=== PATIENT | female | born 1975 | race Caucasian/White ===

== ENCOUNTER 2017-01-20 12:27 | Emergency (ER) | payer OTHER ==
[~2017-01-20] VITALS: Ht 167.6 cm; Wt 122.5 kg
--- NOTE | 2017-01-20 13:02 | RAD ---
Three-view right shoulder radiographs 01/20/2017 Clinical history: Right shoulder pain post injury. AP internal and external rotation and transscapular digital radiographs of the right shoulder were obtained. No fracture or dislocation of the right shoulder is seen. Mild degenerative changes are seen involving the right AC joint. Impression: No fracture or dislocation of the right shoulder is seen.
[2017-01-20 13:45] VITALS: BP 162/103
[2017-01-20] MEDS ORDERED: KETOROLAC 60 MG/2 ML INJ. IM ONE (14:45)
[2017-01-20] MEDS ORDERED: DICL50TA4 PO (14:55)
--- NOTE | 2017-01-20 14:55 | PHYS DOC ---
Past Medical History Past Medical History: Depression, Hypertension Past Surgical History: Cholecystectomy, Tubal ligation Additional Past Surgical Histo: D&C; Hernia Alcohol Use: Rarely Drug Use: None Adult General Chief Complaint Chief Complaint: SHOULDER INJURY HPI HPI Patient is a 41 year old female with history of hypertension and depression who presents today with moderate sharp right shoulder pain that began a couple minutes prior to coming to the ED. 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 Patient states the pain is worse on range of motion. Review of Systems Review of Systems Constitutional: Denies fever or chills [] Musculoskeletal: Right shoulder pain Integument: Denies rash or skin lesions [] Neurologic: Denies headache, focal weakness or sensory changes [] Current Medications Current Medications Current Medications Medications (Trade) Dose Ordered Sig/S[place] Start Time Stop Time Status Last Admin Dose Admin Ketorolac Tromethamine (Toradol Im) 60 mg 1X ONCE 01/20/17 14:45 01/20/17 14:46 DC 01/20/17 14:47 60 MG Allergies Allergies Allergies Coded Allergies Type Severity Reaction Last Updated Verified Penicillins Allergy Intermediate 01/20/17 Yes latex Allergy Intermediate 01/20/17 Yes lisinopril Allergy Intermediate 01/20/17 Yes morphine Allergy Intermediate 01/20/17 Yes Physical Exam Physical Exam Constitutional: Well developed, well nourished, no acute distress, non-toxic appearance. [] Skin: Warm, dry, no erythema, no rash. [] Back: No tenderness, no CVA tenderness. [] Extremities: Right shoulder with no obvious deformity. Tenderness on palpation of posterior right shoulder joint. Full active and passive range of motion to the right shoulder including abduction and adduction. Adequate plantar flexion and this flexion of the right forearm. +2 right radial pulse. Adequate radial medial and ulnar sensation to the right upper extremity. Cap refill less than 2 seconds the right fingers. Neurologic: Alert and oriented X 3, normal motor function, normal sensory function, no focal deficits noted. [] Psychologic: Affect normal, judgement normal, mood normal. [] Current Patient Data Vital Signs Vital Signs Date Time Temp Pulse Resp B/P (MAP) Pulse Ox O2 Delivery O2 Flow Rate FiO2 01/20/17 13:45 98.5 77 16 94 Room Air 98.5 EKG EKG [] Radiology/Procedures Radiology/Procedures []PROCEDURE: SHOULDER 2+V RIGHT Three-view right shoulder radiographs 01/20/2017 Clinical history: Right shoulder pain post injury. AP internal and external rotation and transscapular digital radiographs of the right shoulder were obtained. No fracture or dislocation of the right shoulder is seen. Mild degenerative changes are seen involving the right AC joint. Impression: No fracture or dislocation of the right shoulder is seen. DICTATED and SIGNED BY: MANUEL BRODERICK MD DATE: 01/20/17 [id number] CC: ELIZABETH FERNANDES APRN ~ Course & Med Decision Making Course & Med Decision Making Pertinent Labs and Imaging studies reviewed. (See chart for details) Patient is in the ED with right shoulder pain after sliding a 500 pound patient up in bed on the fifth floor. Right shoulder x-rays interpreted by radiologist are negative for any acute findings. Patient likely has right shoulder strain. Ice elevation encouraged. Provided a sling in the ED by the ED RN, neurovascular exam is intact. Follow-up with orthopedic doctor provided in the next 7 days if pain continues. Discharged with diclofenac for pain. Her blood pressure was elevated in the emergency room. She has history of hypertension. Recommended following up with her PCP. She has no cardiac or neurological complaints. Dragon Disclaimer Dragon Disclaimer This electronic medical record was generated, in whole or in part, using a voice recognition dictation system. Departure Departure Impression: Primary Impression: Right shoulder strain Additional Impression: Hypertension Disposition: 01 HOME, SELF-CARE Condition: STABLE Referrals: HÉCTOR ROLON MD follow up in one week Patient Instructions: Shoulder Exercises, Generic, SportsMed, Shoulder Sprain Additional Instructions: You were seen with the right shoulder strain. Ice and elevate the extremity. Wear the sling provided but ensure you remove the right upper extremity from the sling every hour and take it through full range of motion as well as dangle it down to prevent frozen shoulder. Follow up with the orthopedic doctor provided in the next 7 days if pain continues. Take the prescribed pain medicine as needed. Your blood pressure was elevated in the emergency room. Follow-up with the primary care doctor for BP monitoring as well. Scripts Diclofenac Sodium (DICLOFENAC SODIUM) 50 Mg Tablet.dr 1 TAB PO BID, #30 TAB 0 Refills Prov: ELIZABETH FERNANDES APRN 01/20/17 Problem Qualifiers Primary Impression: Right shoulder strain Encounter type: initial encounter Qualified Codes: S46.911A - Strain of unspecified muscle, fascia and tendon at shoulder and upper arm level, right arm , initial encounter Additional Impression: Hypertension Hypertension type: unspecified Qualified Codes: I10 - Essential (primary) hypertension ELIZABETH FERNANDES APRN Jan 20, 2017 14:55
== END 2017-01-20 15:10 | disposition home or self-care (01) ==
LOC: ER 12:27
DX: S46.911A Strain of unspecified muscle, fascia and tendon at shoulder and upper arm level, right arm, initial encounter (principal); I10 Essential (primary) hypertension; F32.9 Major depressive disorder, single episode, unspecified; Z88.0 Allergy status to penicillin; Z91.040 Latex allergy status; Z88.5 Allergy status to narcotic agent; Z88.8 Allergy status to other drugs, medicaments and biological substances; Z90.49 Acquired absence of other specified parts of digestive tract; X58.XXXA Exposure to other specified factors, initial encounter; Y93.89 Activity, other specified; Y92.89 Other specified places as the place of occurrence of the external cause; Y99.8 Other external cause status
CPT/HCPCS: 29240; 73030; 96372; 99284; J1885

== ENCOUNTER 2020-04-29 18:51 | Emergency (ER) | payer OTHER ==
[~2020-04-29] VITALS: Ht 167.6 cm; Wt 113.6 kg
[~2020-04-29 18:51] MED LIST: DICL50TA4 PO
[2020-04-29 19:15] VITALS: BP 157/101
--- NOTE | 2020-04-29 21:42 | RAD ---
Exam: Left ankle 3 views INDICATION: Fall TECHNIQUE: Frontal, lateral and oblique views of the right ankle Comparisons: None FINDINGS: Mild soft tissue swelling surrounding the left ankle. Bone mineralization is normal. No acute or heal ed fractures. Joint spaces are well-maintained. IMPRESSION: No acute osseous abnormality. Electronically signed by: Mandeep Lazar MD (04/29/2020 9:40 PM) LEANNA
--- NOTE | 2020-04-29 21:43 | RAD ---
Exam: Right elbow 3 views INDICATION: Fall, TECHNIQUE: Frontal, lateral and oblique views of the right elbow Comparisons: None FINDINGS: Bone mineralization is normal. No acute or healed fractures. Soft tissues are unremarkable. Joint spa jake are well-maintained. IMPRESSION: No acute osseous abnormality. Electronically signed by: Mandeep Lazar MD (04/29/2020 9:41 PM) LEANNA
--- NOTE | 2020-04-29 21:43 | RAD ---
EXAM: AP pelvis, AP and lateral views right hip DATE: 04/29/2020 8:51 PM INDICATION: Reason: Fall - pt in waiting room, please continue with x-ray / Spl. Instructions: / His tory: COMPARISON: No Prior FINDINGS: Scattered pelvic phleboliths are seen. No evidence of acute fracture or dislocation. Joint spaces are preserved without significant degenerative/proliferative change. Degenerative changes of spine are s een. IMPRESSION: No evidence of acute fracture or dislocation. Electronically signed by: Donovan Su MD (04/29/2020 9:40 PM) TEO
--- NOTE | 2020-04-29 21:46 | RAD ---
EXAM: 3 views of the left wrist DATE: 04/29/2020 8:51 PM INDICATION: Reason: Fall - pt in waiting room, please continue with x-ray / Spl. Instructions: / His tory: COMPARISON: No Prior FINDINGS: No acute fracture or dislocation. Mild thumb CMC DJD. No significant soft tissue swelling. IMPRESSION: 1. No evidence of acute fracture or dislocation. 2. Mild thumb CMC DJD Electronically signed by: Donovan Su MD (04/29/2020 9:44 PM) TEO
[2020-04-29] MEDS ORDERED: IBUP-1007 PO (22:46)
[2020-04-29] MEDS ORDERED: ORPH100T PO (22:46)
--- NOTE | 2020-04-29 22:47 | PHYS DOC ---
Past Medical History Past Medical History: Bipolar, Depression, Hypertension, Other Additional Past Medical Histor: ROSAS (DARRIAN MAZARIEGOS ANALYTICAL ENGINEER) Past Surgical History: Cholecystectomy, Tubal ligation Additional Past Surgical Histo: D&C; Hernia (DARRIAN MAZARIEGOS APRN) Smoking Status: Current Every Day Smoker Additional Information: 05/01 PPD Alcohol Use: Rarely Drug Use: None (DARRIAN MAZARIEGOS APRN) General Adult EDM: Chief Complaint: MULTIPLE COMPLAINTS HPI: HPI: Patient is a 44 year old female who presents with had a hold of her lunch back and work back and was walking when she tripped over a rock and fell and rolled her left ankle inward. Patient complains of left wrist pain, left ankle pain, right hip pain and lower back pain and right elbow pain. Patient denies hitting her head or hurting her neck or back. Patient rates her pain 8 out of 10 and states it is aching and throbbing. Patient denies taking anything for pain prior to coming. Has a history of ROSAS, hypertension, bipolar, cholecystectomy, smoker, tubal ligation. (DARRIAN MAZARIEGOS ANALYTICAL ENGINEER) Review of Systems: Review of Systems: Constitutional: Denies fever or chills. [] Eyes: Denies change in visual acuity. [] HENT: Denies nasal congestion or sore throat. [] Respiratory: Denies cough or shortness of breath. [] Cardiovascular: Denies chest pain or edema. [] GI: Denies abdominal pain, nausea, vomiting, bloody stools or diarrhea. [] : Denies dysuria. [] Musculoskeletal: Denies back pain. + Left ankle, + left wrist, + right hip, + right elbow joint pain. [] Integument: Denies rash. [] Neurologic: Denies headache, focal weakness or sensory changes. [] Endocrine: Denies polyuria or polydipsia. [] Lymphatic: Denies swollen glands. [] Psychiatric: Denies depression or anxiety. [] (DARRIAN MAZARIEGOS ANALYTICAL ENGINEER) Heart Score: Risk Factors: Risk Factors: DM, Current or recent (<one month) smoker, HTN, HLP, family history of CAD, obesity. Risk Scores: Score 0 - 3: 2.5% MACE over next 6 weeks - Discharge Home Score 4 - 6: 20.3% MACE over next 6 weeks - Admit for Clinical Observation Score 7 - 10: 72.7% MACE over next 6 weeks - Early Invasive Strategies (DARRIAN MAZARIEGOS APRN) Allergies: Allergies: Allergies Coded Allergies Type Severity Reaction Last Updated Verified Penicillins Allergy Intermediate 01/20/17 Yes latex Allergy Intermediate 01/20/17 Yes lisinopril Allergy Intermediate 01/20/17 Yes morphine Allergy Intermediate 01/20/17 Yes (DARRIAN MAZARIEGOS APRN) Physical Exam: PE: Constitutional: Well developed, well nourished, no acute distress, non-toxic appearance. [] HENT: Normocephalic, atraumatic, bilateral external ears normal, oropharynx moist, no oral exudates, nose normal. [] Eyes: PERRLA, EOMI, conjunctiva normal, no discharge. [] Neck: Normal range of motion, no tenderness, supple, no stridor. [] Cardiovascular:Heart rate regular rhythm, no murmur [] Lungs & Thorax: Bilateral breath sounds clear to auscultation [] Abdomen: Bowel sounds normal, soft, no tenderness, no masses, no pulsatile masses. [] Skin: Warm, dry, no erythema, no rash. [] Back: No tenderness, no CVA tenderness. [] Extremities: Left lateral ankle tenderness, no cyanosis, no clubbing, limited ROM but intact, 2+ edema. [] Neurologic: Alert and oriented X 3, normal motor function, normal sensory function, no focal deficits noted. [] Psychologic: Affect normal, judgement normal, mood normal. [] (DARRIAN MAZARIEGOS APRN) Current Patient Data: Vital Signs: Vital Signs Date Time Temp Pulse Resp B/P (MAP) Pulse Ox O2 Delivery O2 Flow Rate FiO2 04/29/20 19:15 97.8 86 18 157/101 (119) 99 Room Air 97.8 (DARRIAN MAZARIEGOS APRN) EKG: EKG: [] (DARRIAN MAZARIEGOS APRN) Radiology/Procedures: Radiology/Procedures: [] Impression: [facility] [address] [place], [place] [id number] IMAGING REPORT Signed PATIENT: FAUSTO HOOK ACCOUNT: [id number] : 1975 LOCATION: ER AGE: 44 SEX: F EXAM STATUS: REG ER ORD. PHYSICIAN: NON,STAFF REASON: Fall - pt in waiting room, please continue with x-ray PROCEDURE: HIP RIGHT 2V WITH PELVIS EXAM: AP pelvis, AP and lateral views right hip DATE: 04/29/2020 8:51 PM INDICATION: Reason: Fall - pt in waiting room, please continue with x-ray / Spl. Instructions: / History: COMPARISON: No Prior FINDINGS: Scattered pelvic phleboliths are seen. No evidence of acute fracture or dislocation. Joint spaces are preserved without significant degenerative/proliferative change. Degenerative changes of spine are seen. IMPRESSION: No evidence of acute fracture or dislocation. Electronically signed by: Donovan Allison MD (04/29/2020 9:40 PM) TEO DICTATED and SIGNED BY: DONOVAN ALLISON MD DATE: 04/29/[id number] [address] [id number] IMAGING REPORT Signed PATIENT: FAUSTO HOOK ACCOUNT: [id number] : 1975 LOCATION: ER AGE: 44 SEX: F EXAM STATUS: REG ER ORD. PHYSICIAN: NON,STAFF REASON: Fall - pt in waiting room, please continue with x-ray PROCEDURE: WRIST 3V LEFT EXAM: 3 views of the left wrist DATE: 04/29/2020 8:51 PM INDICATION: Reason: Fall - pt in waiting room, please continue with x-ray / Spl. Instructions: / History: COMPARISON: No Prior FINDINGS: No acute fracture or dislocation. Mild thumb CMC DJD. No significant soft tissue swelling. IMPRESSION: 1. No evidence of acute fracture or dislocation. 2. Mild thumb CMC DJD Electronically signed by: Donovan Allison MD (04/29/2020 9:44 PM) TEO DICTATED and SIGNED BY: DONOVAN ALLISON MD DATE: 04/29/[id number] [address] [id number] IMAGING REPORT Signed PATIENT: KENRICK HOOKA ACCOUNT: [id number] : 1975 LOCATION: ER AGE: 44 SEX: F EXAM STATUS: REG ER ORD. PHYSICIAN: NON,STAFF REASON: Fall - pt in waiting room, please continue with x-ray PROCEDURE: ELBOW RIGHT 3V Exam: Right elbow 3 views INDICATION: Fall, TECHNIQUE: Frontal, lateral and oblique views of the right elbow Comparisons: None FINDINGS: Bone mineralization is normal. No acute or healed fractures. Soft tissues are unremarkable. Joint spaces are well-maintained. IMPRESSION: No acute osseous abnormality. Electronically signed by: Mandeep Roach MD (04/29/2020 9:41 PM) LEANNA DICTATED and SIGNED BY: MANDEEP ROACH MD DATE: 04/29/[id number] 0 [facility] [address] [place], [place] [id number] IMAGING REPORT Signed PATIENT: FAUSTO HOOK ACCOUNT: [id number] : 1975 LOCATION: ER AGE: 44 SEX: F EXAM STATUS: REG ER ORD. PHYSICIAN: NON,STAFF REASON: Fall - pt in waiting room, please continue with x-ray PROCEDURE: ANKLE LEFT 3V Exam: Left ankle 3 views INDICATION: Fall TECHNIQUE: Frontal, lateral and oblique views of the right ankle Comparisons: None FINDINGS: Mild soft tissue swelling surrounding the left ankle. Bone mineralization is normal. No acute or healed fractures. Joint spaces are well-maintained. IMPRESSION: No acute osseous abnormality. Electronically signed by: Mandeep Roach MD (04/29/2020 9:40 PM) LEANNA DICTATED and SIGNED BY: MANDEEP ROACH MD DATE: 04/29/[id number] 0 (DARRIAN MAZARIEGOS APRN) Course & Med Decision Making: Course & Med Decision Making Pertinent Labs and Imaging studies reviewed. (See chart for details) See HPI. Slight tenderness to lateral ankle with 2+ swelling. No deformity but limited range of motion due to pain. No bruising. Cap refill less than 2 seconds. Skin pink warm and dry. Left wrist full range of motion and no tenderness. There is no deformity or laxity in any joint. Radial pulse strong present. Skin pink warm and dry. Cap refill less than 2 seconds. Patient can make a fist and wiggle all of her fingers. Ambulatory with a steady gait. No right hip tenderness, deformity or bruising. No swelling. No focal weakness. No joint laxity. Right elbow has full range of motion with slight 1+ swelling but there is no deformity. No tenderness. No laxity. X-rays show no acute findings. Patient is placed in a left stirrup with a Abdi wrap and a Velcro splint. Patient can follow-up with her primary care provider or she can follow-up with orthopedic if needed. [] (DARRIAN MAZARIEGOS APRN) Dragon Disclaimer: Dragon Disclaimer: This electronic medical record was generated, in whole or in part, using a voice recognition dictation system. (DARRIAN MAZARIEGOS APRN) Departure Departure Impression: Primary Impression: Wrist pain, left Additional Impressions: Fall Qualified Codes: W19.XXXA - Unspecified fall, initial encounter Ankle pain, left Qualified Codes: M25.572 - Pain in left ankle and joints of left foot Hip pain, right Elbow pain, right Disposition: 01 DC HOME SELF CARE/HOMELESS Condition: STABLE Referrals: BRIDGET LYLES MD (PCP) HÉCTOR ROLON MD Patient Instructions: Contusion, Muscle Strain Additional Instructions: Follow-up with your primary care provider or I have referred you to an orthopedic. Use ice and elevation to help with pain or swelling. Take medications as prescribed and with food. Remember these medications can make you sleepy do not drive or drink any alcohol. Scripts Ibuprofen (IBUPROFEN) 600 Mg Tablet 600 MG PO PRN Q6HRS PRN for INFLAMMATION, #30 TAB Prov: DARRIAN MAZARIEGOS ANALYTICAL ENGINEER 04/29/20 Orphenadrine Citrate (ORPHENADRINE CITRATE) 100 Mg Tablet.er 1 TAB PO BID, #14 TAB Prov: DARRIAN MAZARIEGOS APRN 04/29/20 Attending Signature Attending Signature I have reviewed the PA/FORENSIC INVESTIGATOR's note and plan of care. I was available for consultation as needed during the patient's visit in the emergency department. I agree with the clinical impression, plan, and disposition. (MARINO MARIE DO) DARRIAN MAZARIEGOS APRN Apr 29, 2020 22:47 MARINO MARIE DO Apr 29, 2020 23:15
== END 2020-04-29 23:14 | disposition home or self-care (01) ==
LOC: ER 18:51
DX: G89.11 Acute pain due to trauma (principal); M25.532 Pain in left wrist; M25.572 Pain in left ankle and joints of left foot; M25.521 Pain in right elbow; M25.551 Pain in right hip; F32.9 Major depressive disorder, single episode, unspecified; I10 Essential (primary) hypertension; F17.200 Nicotine dependence, unspecified, uncomplicated; Z98.51 Tubal ligation status; Z90.49 Acquired absence of other specified parts of digestive tract; Z98.890 Other specified postprocedural states; Z88.0 Allergy status to penicillin; Z91.040 Latex allergy status; Z88.6 Allergy status to analgesic agent; Z88.8 Allergy status to other drugs, medicaments and biological substances; W18.09XA Striking against other object with subsequent fall, initial encounter; Y93.89 Activity, other specified; Y92.89 Other specified places as the place of occurrence of the external cause; Y99.8 Other external cause status
CPT/HCPCS: 29125; 73080; 73110; 73502; 73610; 99284